=== PATIENT | female | born 1995 | race American Indian/Alaskan Native ===

== ENCOUNTER → 2022-07-14 | Outpatient (CLI) | payer BC ==
--- NOTE | 2022-07-14 12:01 | CA ---
Exercise Stress Test Report Name: Kaylee Samuel Exam Date: 07/14/2022 11:04 Exam Location: [facility] Ht (in): 65 Wt (lb): 174 BSA: 1.86 Ordering Phys: Sera Beverly DO Referring Phys: Leticia Apple PAC Technologist: Ike Shen Age: 26 Gender: F : 1995 Procedure CPT: Indications: R079 R002 R42 ICD-10 Codes: Patient History: Medications: TOPIRIMATE, TIAZODONE, XYXAL, SYMATINPTAN Meds past 24 hrs: Pretest Chest Pain: STRESS TEST Hunter Protocol Exercise Duration (min:sec): 03:[address] Depressions (mm): Angina Score: Santiago Score: Resting HR (bpm): 77 Peak HR (bpm): 115 Resting BP (mmHg): 116 / 79 Peak BP (mmHg): 140 / 69 MPHR: 194 Target HR: 165 % MPHR: 59 METS: 5.0 Total Dose: Peak Dose: Atropine: Double Product: 97233 BP Response: Stress Termination: Chest pain/per Laura Stress Symptoms: Note from Laura: Patient developed chest pain during stress test. 07/13 and was getting worse. Test was stopped. Patient has an appointment with Dr. Hughes next week 07/21 to establish care. Patient will discuss with Dr. Hughes. Stress Summary: ECG ANALYSIS Resting ECG: Stress ECG: CONCLUSIONS Patient underwent exercise stress EKG with a Hunter protocol treadmill stress test. Patient exercised into Stage 2 for a total of 6 minutes and 3 seconds reaching a total of 5 METS. Patient's maximum heart rate was 115 which represented 59 % age- predicted maximum heart rate. Stress EKG findings: At baseline patient's EKG showed normal sinus rhythm, normal axis, no significant ST or T wave abnormalities. At peak exercise, EKG showed and no significant change from baseline. Conclusions: 1. Inadequate stress EKG secondary to inability to reach 85% maximum predicted heart rate. However at 59%, normal EKG response to exercise without evidence of inducible ischemia. 2. Poor exercise capacity. 3. Chest pain on treadmill with exercise. Clinical correlation recommended Dr. Gregory Sabillon DO (Electronically Signed) Final Date: 14 Jul 2022 12:00
== END | disposition home or self-care (01) ==
LOC: RADNMMAIN 10:39
PROVIDERS: ATTEND Family Medicine
DX: R07.9 Chest pain, unspecified (principal); R00.2 Palpitations; R42 Dizziness and giddiness
CPT/HCPCS: 93017

== ENCOUNTER → 2023-07-17 | Outpatient (CLI) | payer BC ==
[2023-07-17 14:44] LABS: Basophils # (A) 0.02 X 10*3/uL (0.00-0.10); Basophils % (A) 0.5 %; Eosinophils # (A) 0.11 X 10*3/uL (0.04-0.35); Eosinophils % (A) 2.6 %; HCT 43.9 % (37.2-46.3); HGB 15.2 g/dL (12.0-15.0); Lymphocytes # (A) 1.38 X 10*3/uL (0.90-5.00); Lymphocytes % (A) 32.7 %; MCH 30.8 pg (27.0-32.0); MCHC 34.6 g/dL (32.0-37.0); Mean Platelet Volume 9.5 FL (9.5-12.2); Monocytes # (A) 0.36 X 10*3/uL (0.20-1.00); Monocytes % (A) 8.5 %; NRBC Per 100 WBC 0 X 10*3/uL (0.00-0.01); Neutrophils # (A) 2.32 X 10*3/uL (1.80-7.70); Platelet Count 205 X 10*3/uL (140-440); RBC 4.93 X 10*6/uL (4.10-5.20); RDW 12.7 % (11.5-14.5); WBC 4.22 X 10*3/uL (4.50-10.00)
[2023-07-17 15:02] LABS: ALT 20 U/L (8-44); AST 25 U/L (13-35); Albumin 4.5 g/dL (3.8-4.9); Albumin/Globulin Ratio 2.65 Ratio (1.60-3.17); Alkaline Phosphatase 68 U/L (41-126); BUN/Creat Ratio 11.64 Ratio (12.00-20.00); Blood Urea Nitrogen 12.8 mg/dL (9.0-27.0); Calcium 9.3 mg/dL (8.7-10.3); Chloride 110 mmol/L (96-109); Chol/HDL Ratio 2.36 Ratio; Globulin 1.7 g/dL (1.6-3.3); Glucose 95 mg/dL (70-110); LDL Cholesterol,Calculated 75.1 mg/dL (0.0-131.0); Potassium 4.4 mmol/L (3.5-5.5); Sodium 141 mmol/L (135-145); Total Bilirubin 0.5 mg/dL (0.3-1.2); Total Protein 6.2 g/dL (6.2-8.2); VLDL Calculation 7.34 mg/dL (5.00-40.00)
== END | disposition home or self-care (01) ==
LOC: LABWHC1 10:44
PROVIDERS: ATTEND Internal Medicine
DX: Z00.00 Encounter for general adult medical examination without abnormal findings (principal); R53.82 Chronic fatigue, unspecified
CPT/HCPCS: 36415; 80053; 80061; 84443; 85025

== ENCOUNTER → 2023-08-03 | Outpatient (CLI) | payer BC ==
--- NOTE | 2023-08-04 15:02 | XR ---
EXAMINATION TYPE: XR abdomen 1V DATE OF EXAM: 08/03/2023 Comparison: None Clinical History: 27-year-old female R10.84 GENERALIZED ABDOMINAL PAIN Findings: Small 4 mm calcification right mid abdomen. In IUD is present in the right paramedian pelvis obliquel y towards the right. Nonobstructive bowel gas pattern. Scattered mild stool. Impression: 1. Nonobstructive bowel gas pattern. Mild stool burden. IUD present. 2. Nonspecific 4 mm calcification right paramedian mid abdomen. Correlate to exclude the possibility of a stone in the right renal collecting system or upper right ureter.
== END | disposition home or self-care (01) ==
LOC: RADXRMAIN 13:10
PROVIDERS: ATTEND Internal Medicine
DX: R10.84 Generalized abdominal pain (principal)
CPT/HCPCS: 74018

== ENCOUNTER → 2023-08-10 | Outpatient (CLI) | payer BC ==
--- NOTE | 2023-08-10 12:30 | XR ---
EXAMINATION TYPE: XR chest 2V DATE OF EXAM: 08/10/2023 COMPARISON: None HISTORY: 27-year-old female shortness of breath, R07.89 OTHER CHEST PAIN TECHNIQUE: Frontal and lateral views FINDINGS: The cardiomediastinal silhouette, aorta, and pulmonary vasculature are within normal limits. Lungs an d pleural spaces are clear. Bilateral nipple bars. IMPRESSION: No acute cardiopulmonary process.
== END | disposition home or self-care (01) ==
LOC: RADXRMAIN 11:49
PROVIDERS: ATTEND Family Medicine
DX: R07.89 Other chest pain (principal)
CPT/HCPCS: 71046